=== PATIENT | female | born 1970 | race Caucasian/White ===

== ENCOUNTER → 2020-03-30 | Outpatient (CLI) | payer OTHER ==
[~2020-03-30] VITALS: Ht 160 cm; Wt 84.8 kg
[2020-03-30 09:37] LABS: HEMOGLOBIN 14.1 gm/dl (12.3-15.3); RED BLOOD COUNT 4.61 M/UL (4.00-5.10); WHITE BLOOD COUNT 7.5 K/UL (4.5-11.0)
[2020-03-30 09:57] LABS: BUN/CREATININE RATIO 9 (0-10)
[2020-04-14 13:10] LABS: ANTI-INFLIXIMAB ANTIBODY <22 ng/mL (.); INFLIXIMAB DRUG LEVEL 1.4 ug/mL (.)
== END ==
LOC: OPSV 03-22 09:00
PROVIDERS: Internal Medicine Gastroenterology
DX: K51.90 Ulcerative colitis, unspecified, without complications (principal)
CPT/HCPCS: 36415; 80053; 80299; 82397; 85025; 86140; 96365; 96366; 96375; J1720; J7050; Q5103

== ENCOUNTER → 2020-06-11 | Outpatient (CLI) | payer OTHER ==
[~2020-06-11] VITALS: Ht 160 cm; Wt 84.8 kg
[2020-06-11 09:16] LABS: HEMOGLOBIN 14.2 gm/dl (12.3-15.3); RED BLOOD COUNT 4.71 M/UL (4.00-5.10); WHITE BLOOD COUNT 10.1 K/UL (4.5-11.0)
[2020-06-11 10:08] LABS: BUN/CREATININE RATIO 8 (0-10)
[2020-06-16 21:09] LABS: QUANTIFERON MITOGEN VALUE >10.00 IU/mL (.); QUANTIFERON NIL VALUE 0.02 IU/mL (.); QUANTIFERON TB1 AG VALUE 0.04 IU/mL (.); QUANTIFERON TB2 AG VALUE 0.02 IU/mL (.); QUANTIFERON-TB GOLD PLUS Negative (Negative)
== END ==
LOC: OPSV 05-25 09:00
PROVIDERS: Internal Medicine Gastroenterology
DX: K51.00 Ulcerative (chronic) pancolitis without complications (principal); F17.200 Nicotine dependence, unspecified, uncomplicated; M06.9 Rheumatoid arthritis, unspecified; F32.9 Major depressive disorder, single episode, unspecified; F41.9 Anxiety disorder, unspecified
CPT/HCPCS: 36415; 80053; 85025; 86140; 96365; 96366; 96375; J1720; J7050; Q5103

== ENCOUNTER → 2020-08-12 | Outpatient (CLI) | payer OTHER ==
[~2020-08-12] VITALS: Ht 160 cm; Wt 84.8 kg
[2020-08-12 09:24] LABS: HEMOGLOBIN 14.7 gm/dl (12.3-15.3); RED BLOOD COUNT 4.53 M/UL (4.00-5.10); WHITE BLOOD COUNT 7.7 K/UL (4.5-11.0)
[2020-08-12 09:38] LABS: BUN/CREATININE RATIO 8 (0-10)
== END ==
LOC: OPSV 08-06 08:00
PROVIDERS: Internal Medicine Gastroenterology
DX: K51.00 Ulcerative (chronic) pancolitis without complications (principal); F17.200 Nicotine dependence, unspecified, uncomplicated
CPT/HCPCS: 36415; 80053; 85025; 86140; 96365; 96366; 96375; J1720; J7050; Q5103

== ENCOUNTER → 2020-11-09 | Outpatient (CLI) | payer OTHER ==
[~2020-11-09] VITALS: Ht 160 cm; Wt 84.8 kg
[2020-11-09 09:40] LABS: HEMOGLOBIN 14.2 gm/dl (12.3-15.3); RED BLOOD COUNT 4.28 M/UL (4.00-5.10); WHITE BLOOD COUNT 10.3 K/UL (4.5-11.0)
[2020-11-09 10:54] LABS: BUN/CREATININE RATIO 6 (0-10)
== END ==
LOC: OPSV 09:00
PROVIDERS: Internal Medicine Gastroenterology
DX: K51.00 Ulcerative (chronic) pancolitis without complications (principal)
CPT/HCPCS: 80053; 85025; 86140; 96365; 96366; 96375; J1720; J7050; Q5103

== ENCOUNTER → 2021-01-20 | Outpatient (CLI) | payer OTHER ==
[~2021-01-20] VITALS: Ht 175.3 cm; Wt 84.8 kg
[2021-01-20 09:43] LABS: HEMOGLOBIN 14.9 gm/dl (12.3-15.3); RED BLOOD COUNT 4.55 M/UL (4.00-5.10); WHITE BLOOD COUNT 10.1 K/UL (4.5-11.0)
[2021-01-20 10:24] LABS: BUN/CREATININE RATIO 6 (0-10)
== END ==
LOC: OPSV 01-04 09:00
PROVIDERS: Internal Medicine Gastroenterology
DX: K51.00 Ulcerative (chronic) pancolitis without complications (principal); G62.9 Polyneuropathy, unspecified; G25.81 Restless legs syndrome; F32.9 Major depressive disorder, single episode, unspecified; F41.9 Anxiety disorder, unspecified; F17.200 Nicotine dependence, unspecified, uncomplicated
CPT/HCPCS: 36415; 80053; 85025; 86140; 96365; 96366; 96375; J1720; J7030; Q5103

== ENCOUNTER → 2021-08-09 | Outpatient (CLI) | payer OTHER ==
[~2021-08-09] VITALS: Ht 160 cm; Wt 84.8 kg
[2021-08-09 11:57] LABS: HEMOGLOBIN 13.6 gm/dl (12.3-15.3); RED BLOOD COUNT 4.18 M/UL (4.00-5.10); WHITE BLOOD COUNT 8.1 K/UL (4.5-11.0)
[2021-08-09 12:35] LABS: BUN/CREATININE RATIO 6 (0-10)
[2021-08-11 19:12] LABS: QUANTIFERON MITOGEN VALUE >10.00 IU/mL (.); QUANTIFERON NIL VALUE 0.08 IU/mL (.); QUANTIFERON TB1 AG VALUE 0.06 IU/mL (.); QUANTIFERON TB2 AG VALUE 0.07 IU/mL (.); QUANTIFERON-TB GOLD PLUS Negative (Negative)
== END ==
LOC: OPSV 08-02 08:00
PROVIDERS: Internal Medicine Gastroenterology
DX: K51.00 Ulcerative (chronic) pancolitis without complications (principal)
CPT/HCPCS: 80053; 85025; 86140; 96375; 96413; 96415; J1720; J7050; Q5103

== ENCOUNTER → 2021-08-23 | Outpatient (CLI) | payer OTHER ==
[~2021-08-23] VITALS: Ht 160 cm; Wt 84.8 kg
[2021-08-23 13:02] LABS: HEMOGLOBIN 13.4 gm/dl (12.3-15.3); RED BLOOD COUNT 4.1 M/UL (4.00-5.10); WHITE BLOOD COUNT 8.2 K/UL (4.5-11.0)
[2021-08-23 13:36] LABS: BUN/CREATININE RATIO 10 (0-10)
== END ==
LOC: OPSV 11:23
PROVIDERS: Internal Medicine Gastroenterology
DX: K51.00 Ulcerative (chronic) pancolitis without complications (principal)
CPT/HCPCS: 80053; 85025; 86140; 96375; 96413; 96415; J1720; J7050; Q5103

== ENCOUNTER → 2021-10-04 | Outpatient (CLI) | payer OTHER ==
[~2021-10-04] VITALS: Ht 175.3 cm; Wt 84.8 kg
[2021-10-04 11:10] LABS: HEMOGLOBIN 14.4 gm/dl (12.3-15.3); RED BLOOD COUNT 4.53 M/UL (4.00-5.10); WHITE BLOOD COUNT 10.1 K/UL (4.5-11.0)
[2021-10-04 11:34] LABS: BUN/CREATININE RATIO 8 (0-10)
== END ==
LOC: OPSV 10:39
PROVIDERS: Internal Medicine Gastroenterology
DX: K51.00 Ulcerative (chronic) pancolitis without complications (principal)
CPT/HCPCS: 80053; 85025; 86140; 96365; 96366; 96375; J1720; J7050; Q5103